=== PATIENT | male | born 1995 | race Caucasian/White ===

== ENCOUNTER 2022-11-11 20:09 | Emergency (ER) | payer MEDICAID, SELFPAY ==
[2022-11-11 20:09] VITALS: BP 134/81; PULSE 124; RESP 18; TEMP 36.5; O2SAT 100; BMI 21.7
--- NOTE | 2022-11-11 22:19 | EDS_ITS ---
HPI History of Present Illness Chief Complaint: Abscess Informant: patient Onset/Context/Timing Onset: Today Current Severity: Moderate Maximum Severity: Moderate Narrative Narrative: Patient presents with an abscess to the inner surface of the right upper arm. He states that he noticed it when he woke this morning. He denies fever or chills. He has had multiple abscesses in the axilla that required drainage in the past. PFSH PFSH Medical History no medical history no medical history Home Medications doxycycline monohydrate 100 mg capsule 100 mg PO BID #20 caps 11/11/22 [Rx Last Taken Unknown] Allergy/AdvReac Type Severity Reaction Status Date / Time naproxen Allergy Rash Verified 11/11/22 20:11 Social History Smoking Status: Current every day smoker tobacco type: cigarettes ROS ROS ED Constitutional Constitutional ED: Denies chills or fever(s) Eyes Eyes: Denies change in vision or discharge from eye(s) ENT ENT ED: Denies discharge from eye(s), rhinorrhea or sore throat Cardiovascular Cardiovascular: Denies chest pain or palpitations Respiratory/Chest Respiratory/Chest: Denies cough or dyspnea Gastrointestinal Gastrointestinal: Denies abdominal pain, nausea or vomiting Musculoskeletal Musculoskeletal: Reports extremity pain; Denies back pain Integumentary Reports abscess; Denies Abrasions or rash Neurologic Neurologic: Denies headache(s) or weakness Psychiatric Psychiatric: Denies anxiety or depression Allergic/Immunologic Allergic/Immunologic ED: Denies lip swelling or urticaria EXAM Physical Exam Const Vital Signs: 11/11/22 20:09 Temperature 97.7 F L Temperature Source Temporal Pulse Rate 124 H Respiratory Rate 18 Blood Pressure 134/81 H Blood Pressure Mean 98 Pulse Ox 100 Oxygen Delivery Method Room Air Positive well nourished and well developed General Appearance ED: well developed HEENT Reports normocephalic and head/scalp atraumatic Eyes PERRL and EOMs intact bilaterally Neck supple Chest Wall inspection of chest normal and palpation of chest normal Resp normal respiratory effort and clear to auscultation bilaterally Cardio regular rate and regular rhythm GI normal to inspection, nondistended, normoactive bowel sounds Palpation: soft Extremity Extremity Narrative: 6 x 4 cm abscess on the inner surface of the right proximal upper arm. No surrounding cellulitis. Neuro oriented x3 and no sensory deficits noted Sensorium / Orientation: alert Motor Exam: strength 5/5 throughout Psych mental status grossly normal Skin Skin Narrative: Abscess as noted above. MDM MDM MDM Narrative Medical decision making narrative: Wound is anesthetized with 5 cc 1% lidocaine. Incision is made with a #11 blade. Return of bloody serosanguineous fluid and pus. Wound is drained and cleansed. Dressing applied. Patient will be treated with a course of doxycycline, first dose given here. Discharge Plan Triage Chief Complaint: Abscess ED Provider: Maria Ortiz Dx/Rx/DC Orders Clinical Impression: Cutaneous abscess Instructions: ED Abscess Incision And Drainage Prescriptions: New doxycycline monohydrate 100 mg capsule 100 mg PO BID Qty: 20 0RF Primary Care Provider: Care Physician,No Primary Referrals: Hermelinda Rees MD [Med Staff - [facility]] - As Needed Care Physician,No Primary [Primary Care Provider] - Disposition Disposition: Home, Self Care
[2022-11-11] MEDS: Doxycycline 100 MG CAPSULE PO (22:35)
[2022-11-11] MEDS: Lidocaine 1% (20 ml mdv) 20 ML Vial INFILT (22:35)
== END 2022-11-11 23:12 | disposition home or self-care (01) ==
PROVIDERS: Emergency Provider Emergency Medicine; Visit Provider Emergency Medicine
DX: L02.413 Cutaneous abscess of right upper limb (principal); F17.210 Nicotine dependence, cigarettes, uncomplicated
CPT/HCPCS: 10060; 99283